=== PATIENT | female | born 1995 | race Hispanic/Latino ===

== ENCOUNTER 2017-02-16 09:03 | Inpatient (IN) | payer MEDICAID, SELFPAY ==
[2017-02-16] MEDS ORDERED: LR / Pitocin 40 units/1000 ml 1,000 ML ONE (09:33)
[2017-02-16] MEDS ORDERED: Lidocaine 1% (PF) 30 ML VIAL ONE (09:33)
[2017-02-16] MEDS ORDERED: Promethazine HCl 25 MG/ML VIAL IM PRN (09:37)
[2017-02-16] MEDS ORDERED: Ibuprofen 800 MG TAB PO PRN (09:37)
[2017-02-16] MEDS ORDERED: HYDROcodone/Acetaminophen 5/325 mg Tablet PO PRN ×2 (09:37)
[2017-02-16] MEDS ORDERED: Lidocaine 1% (PF) 30 ML VIAL SC PRN (09:37)
[2017-02-16] MEDS ORDERED: Ondansetron HCl/PF 4 MG/2 ML Vial IVP PRN ×2 (09:37→18:32)
[2017-02-16] MEDS ORDERED: LR / Pitocin 40 units/1000 ml 1,000 ML IV PRN (09:37)
[2017-02-16 09:52] LABS: Hematocrit 37.2 % (36.0-47.0); Mean Platelet Volume 9.5 fL (7.4-10.4); Red Blood Cell (RBC) Count 4.56 mill/uL (4.20-5.40); White Blood Cell (WBC) Count 13.2 thou/uL (4.8-10.8)
[2017-02-16 10:03] VITALS: BMI 32.0
--- NOTE | 2017-02-16 11:19 | HP ---
DATE OF ADMISSION: 02/16/2017 TIME OF ADMISSION: 934 LOCATION: Labor and Delivery REASON FOR ADMISSION: Labor at term, 7 cm. This is a patient of Dr. Grossman from the [facility]. HISTORY OF PRESENT ILLNESS: In brief, this is a 21-year-old G3, P2 at 38 weeks and 2 days who arriv ed with complaint of spontaneous onset of labor and was found to be 7 cm on arrival to [facility]. This is a stat admission to Labor and Delivery to Dr. Grossman, who has been notified. She den ies headaches, visual changes or any other complications. REVIEW OF SYSTEMS: Complete review of systems was checked and is otherwise negative unless specifie d in the HPI. PAST SURGICAL HISTORY: Otherwise negative. MEDICATIONS: None. ALLERGIES: None. OB HISTORY: Significant for 2 prior vaginal births. PHYSICAL EXAMINATION: VITAL SIGNS: She is afebrile with a temperature of 98.4. Her blood pressure is 114/71 and her hear t rate is 108 with contractions. Saturation of the oxygen level at room air is 98%. GENERAL: She has contraction discomfort, but is in no acute distress. ABDOMEN: Abdomen has a palpable uterine contractions. CERVICAL EXAM: Cervical examination reveals a cervix of 7 cm dilation, 90% effacement, 0 station, c ephalic presentation. There is no evidence of vulvovaginal lesions. On monitor the heart tones are in the 140s to 150s with moderate variability and acceler ations. Contractions are seen on tocodynamometer about every 2-3 minutes, the heart tones wer e category 1. The estimated weight approximately 6-1/2 pounds. She has a gynecoid pelvis. ASSESSMENT: This is a multigravida at 38 weeks and 2 days, patient of Dr. Grossman (who has been notif ied) and is now 7 cm. She does not have her GBS status on the chart, so we are attempting to call [facility] to receive that result. If the results is unknown then we will use risk fact ors for intrapartum prophylaxis for which she has no current risk factors. She is unaware of her GB S result. PLAN: 1. Admit to Labor and Delivery. 2. Provider notified. 3. Try to find a GBS results from the [facility]. 4. Pain control. 5. If GBS results is not found, use GBS risk factors. ADDENDUM: DATE OF SERVICE: 02/16/2017 TIME OF EVALUATION: 09:55. In brief, Dr. Grossman has notified us that he may not be available for delivery, at which time we will assume care. I introduced myself to the patient and gone over her plan of care. The patient does report that she had spontaneous rupture of membranes of clear fluid at 0600. heart tracing santamaria s been reviewed by me and is category 1. Continue plan of care and await delivery.
[2017-02-16] MEDS ORDERED: Misoprostol 200 MCG TAB ONE (14:35)
[2017-02-16] MEDS ORDERED: Misoprostol 200 MCG TAB PR SCH (15:15)
--- NOTE | 2017-02-16 15:31 | PDOC.OPDEL ---
Addendum entered and electronically signed by Kena Balderas DO 02/17/17 08:58: Addendum regarding perineal lac repair: A non-hemostatic 1st degree perineal lac was noted and repaired with 2-[address]-1 needle with good approximation and hemostasis. This extended into a right labia minora laceration from the perineum to the sulcus, which was repaired with 2-0 vicryl on SH needle with good approximation and hemostasis. No hematoma development and no post-operative complications noted. Original Note: OB Operative/Delivery Note Delivery Dr/Surgeon: Resident: Porfirio Cortes DO Attending: Dariana Broderick MD Assist: Kena Balderas DO Pre-Delivery Diagnosis: active labor Anesthesia: none - Findings A Sex: female - 1 min: 9 - 5 min: 9 - Additional Findings/Plan Placenta delivered: spontaneous Repaired Obstetrical Laceration: right labial Estimated blood loss: 450 Post delivery plan: routine recovery <Porfirio Cortes - Last Filed: 02/16/17 15:35> Operative Note - Operative Note Operative Note: Delivering Physician - Porfirio Cortes DO Assisting Resident - Kena Balderas DO Attending - Dariana Broderick MD Procedure: Spontaneous Vaginal Delivery Anesthesia: epidural, Local for Repair EBL: 450 ml Pre-op Diagnosis: 1. Term intrauterine in labor 2. Spontaneous rupture of membranes 3. GBS negative Post-op Diagnosis: 1. Term intrauterine , delivered 2. Spontaneous rupture of membranes 3. 1st degree perineal laceration 4. Right labial laceration Indications: A 21y/o female ->2 presents in active labor Delivery Note: This is 21yo F ->3003 @ 38.2 wks who delivered a viable female infant at 1425. Following an uneventful antepartum course, a vigorous female was delivered over an intact perineum in the occipitoanterior position. Anterior Shoulder and then remainder of the body delivered. No nuchal cord. The head was held down and mouth and nares were bulb suctioned. Cord clamped and cut and cord blood collected. Delayed cord clamping and skin to skin contact allowed. Placenta delivered intact with a 3 vessel cord noted. Fundal massage was performed, pitocin, and 800 mcg Cytotec given, and the fundus was firm. The cervix and vagina were inspected - 1st degree perineal laceration and right labial laceration found and repaired by Dr. Balderas. See her addendum for details of repair. Infant went to nursery in good condition for routine care. Apgars were 9/9 at 1 & 5 minutes, respectively. Patient tolerated delivery well and went to after routine recovery/care. <Porfirio Cortes - Last Filed: 02/16/17 15:35> Attending Addendum - Attending Addendum I personally evaluated the patient and discussed the management with Dr. Cortes and Andrey I agree with the History, Examination, Assessment and Plan documented above with any addition or exceptions noted below. I was present and participated in the delivery and repair. ABrayMD <Dariana Broderick - Last Filed: 02/17/17 16:53>
[2017-02-16] MEDS ORDERED: Bisacodyl 10 MG SUPP PR PRN (18:32)
[2017-02-16] MEDS ORDERED: LR / Pitocin 40 units/1000 ml 1,000 ML IV SCH (18:32)
[2017-02-16] MEDS ORDERED: Milk Of Magnesia 30 ML UDCUP PO PRN (18:32)
[2017-02-16] MEDS: Lactated Ringer's 1,000 ML IV SCH ×2 (18:41→18:42)
[2017-02-16] MEDS: Docusate (Surfak) 240 MG CAP PO SCH (21:57)
[2017-02-17] MEDS: Ibuprofen 800 MG TAB PO SCH ×3 (05:07→21:20)
--- NOTE | 2017-02-17 07:04 | PRG ---
DATE OF SERVICE: 02/17/2017 TIME: 652 LOCATION: 3 [facility], patient in room 332. DAY #1 In brief, this is a patient who underwent a spontaneous vaginal with the resident team being the attending physicians as Dr. Grossman, the patient's primary physician, was unavailable. The patient delivered while I was in a repeat with another provider. The patient has no new concerns or complaints. VITAL SIGNS: Stable and she is afebrile. Physical exam is benign. ASSESSMENT/PLAN: This is a patient who is day #1 with anticipated discharge day #2. We will continue routine care for now. This patient has a full and complete progress note hand written in the physical chart. This dictation is secondary. NADIA
[2017-02-17] MEDS ORDERED: Adacel (T-DAP) 0.5 ML VIAL IM ONE (09:00)
--- NOTE | 2017-02-17 09:08 | PDOC.PP ---
Post Progress Note Post Day #: 1 Subjective: Pt feeling well with minimal uterine cramping and appropriate uterine bleeding. Tolerating food well and ambulating normally. No difficulty urinating and no pain with micturition. Breast feeding well. No concerns at this time. PO intake tolerated: yes Flatus: yes Ambulation: yes Vital Signs (12 hours) Temp Pulse Resp BP 02/17/17 08:49 98.6 F 71 20 107/59 L 02/17/17 07:45 97.9 F 73 18 02/17/17 04:41 97.9 F 73 18 100/51 L 02/17/17 00:22 98.2 F 88 18 98/58 L Weight Weight 79.379 kg - Physical Examination General: NAD Cardiovascular: no m/r/g, RRR Respiratory: clear to auscultation bilaterally, non-labored breathing Abdominal: + bowel sounds, lochia (appropriate lochia rubra), no distention, appropriately TTP Fundus firm & at: below umbilicus Extremities: negative homans (B) Skin: no rash Perineum: lac repair site C/D/I. no hematoma Neurological: no gross focal deficits Psychiatric: A&Ox3, normal affect Result Diagrams: 02/16/17 09:42 Additional Labs: Post Labs Blood Type A POSITIVE 02/16/17 09:42 Hep Bs Antigen Non-Reactive S/CO (NonReactive) 02/16/17 09:42 (1) Vaginal delivery Code(s): O80 - ENCOUNTER FOR FULL-TERM UNCOMPLICATED DELIVERY Status: Acute Comment: 21yo ->3 s/p on 02/16. 1st degree lac- repaired. Normal course as anticipated. Undecided regarding contraception. (2) Obstetrical laceration, first degree Code(s): O70.0 - FIRST DEGREE PERINEAL LACERATION DURING DELIVERY Status: Acute Comment: Repaired with good hemostasis and no complication. Voiding normally without pain. Edema resolved.
[2017-02-17] MEDS: Docusate (Surfak) 240 MG CAP PO SCH ×2 (09:17→21:20)
[2017-02-17] MEDS: Ferrous Sulfate 325 MG TAB PO SCH ×2 (09:17→15:31)
[2017-02-18] MEDS ORDERED: Acetaminophen 500 MG TAB PO PRN (02:10)
[2017-02-18] MEDS: Ibuprofen 800 MG TAB PO SCH ×2 (06:25→13:30)
[2017-02-18 09:13] VITALS: TEMP 98.8
[2017-02-18 09:17] VITALS: BP 112/64
[2017-02-18] MEDS: Docusate (Surfak) 240 MG CAP PO SCH (10:33)
[2017-02-18] MEDS: Ferrous Sulfate 325 MG TAB PO SCH (10:33)
--- NOTE | 2017-02-18 13:25 | DIS ---
DATE OF ADMISSION: 02/16/2017 DATE OF DISCHARGE: 02/18/2017 PROCEDURE: Term spontaneous vaginal delivery. CONSULTATIONS: None. HOSPITAL COURSE: The patient is a 21-year-old multiparous female who presented in active labor and had subsequent uncomplicated term spontaneous vaginal delivery. For complete details, please refer to the delivery note. The patient's course has been uncomplicated. Today, da y #2, the patient reports she is tolerating p.o., voiding on her own, ambulating, having decreased l ochia and good pain control. PHYSICAL EXAMINATION: VITAL SIGNS: Today blood pressure is 112/64, temperature 98.8, pulse of 76, respiratory rate of 20. GENERAL: She appears to be in no acute distress. She is alert and oriented, and cooperative and pl easant to interact with. HEENT: Head is normocephalic, atraumatic. ABDOMEN: Soft. Fundus is firm. EXTREMITIES: Nontender. Nonedematous. The patient is being discharged to home. She will be takin g ibuprofen as needed over the counter and has instructions to follow up with [facility] in the nex t 3 to 4 weeks, Dr. Grossman will resume care. DISCHARGE INSTRUCTIONS: The patient has also been given instructions to seek medical attention shou ld she experience fever, increasing pain or bleeding.
== END 2017-02-18 13:45 | disposition home or self-care (01) | DRG 775 ==
LOC: L&D/OP 09:03 → L&D 10:03 → 3SW 19:16
PROVIDERS: ADMIT Obstetrics & Gynecology; ATTEND Family Medicine
PROC: 10E0XZZ Delivery of Products of Conception, External Approach (ICD-10-PCS; principal; 2017-02-16)
PROC: 0HQ9XZZ Repair Perineum Skin, External Approach (ICD-10-PCS; 2017-02-16)
DX: O70.0 First degree perineal laceration during delivery (principal); Z37.0 Single live birth; Z3A.38 38 weeks gestation of pregnancy
CPT/HCPCS: 85027; 86780; 87340; 87389; J2001

== ENCOUNTER 2019-08-31 09:37 | Outpatient (CLI) | payer OTHER ==
--- NOTE | 2019-08-31 12:54 | RAD ---
PA AND LATERAL VIEWS OF THE CHEST: 08/31/19 HISTORY: Chest pain. FINDINGS: The cardiomediastinum is normal. The lungs are expanded and clear. The bony thorax is normal. IMPRESSION: Normal exam. POS: [facility]
== END 2019-08-31 09:38 | disposition home or self-care (01) ==
LOC: BICRAD 09:37
PROVIDERS: ATTEND Nurse Practitioner Family
DX: R07.9 Chest pain, unspecified (principal)
CPT/HCPCS: 71046